=== PATIENT | female | born 1970 | race Caucasian/White ===

== ENCOUNTER 2016-11-16 10:01 | Inpatient (IN) | payer OTHER, MEDICARE ==
[~2016-11-16] VITALS: Ht 167.6 cm; Wt 114.8 kg
[~2016-11-16 10:01] MED LIST: ABILIFY10 M1 PO; BUPROPION HCL200 M2 PO; CYANOCOBAL1000 MCG/2 IM; CYMBALTA60 M1 PO; HYDROXYZINE PAM50 MG PO; LATUDA120 M1 PO; LATUDA40 M1 PO; METHYLPHENIDATE54 M2 PO; OLANZAPINE10 M1 PO; PROPRANOLOL HCL20 M1 PO; TRAZODONE HCL50 M1 PO; VITAMIN D1000 UNIT PO
--- NOTE | 2016-11-16 10:29 | ED PSY CRISIS COLLATERAL NOTE ---
See Addendum Collateral Note Collateral Note Family/Inform/Carlos Contacts: Pt's outreach clinician Suzi Jules called and left a voice message to inform that she sent pt to the ED due to SI with a plan to hang herself in the basement with her dogs leash. Per Suzi Pt feels unsafe and very overwhelmed with her SI and thinks she will act upon it. Crisis attempted to return Suzi's call and left her a voice message as well.
--- NOTE | 2016-11-16 10:31 | ED PSYCHIATRIC COMPLAINT ---
History of Present Illness General Chief Complaint: Psychiatric Related Complaint Stated Complaint: DEPRESSION, +SI Source: patient, old records Exam Limitations: no limitations Vital Signs & Intake/Output Vital Signs & Intake/Output Vital Signs Date Time Temp Pulse Resp B/P Pulse O2 O2 Flow FiO2 Ox Delivery Rate 11/16 1143 Room Air 11/16 1014 97.4 76 20 109/76 95 Room Air Allergies Coded Allergies: cephalexin (RASH 11/16/16) meloxicam (THROAT SWELLING 11/16/16) morphine (GI 11/16/16) Reconcile Medications Aripiprazole (Abilify) 10 MG TABLET 1 TAB PO QPM SLEEP (Reported) Bupropion HCl (Bupropion HCl Sr) 200 MG TABLET.ER 1 TAB PO BID DEPRESSION ( Reported) Cholecalciferol (Vitamin D3) (Vitamin D) 1,000 UNIT TABLET 1 TAB PO DAILY SUPPLEMENT (Reported) Cyanocobalamin (Vitamin B-12) (Cyanocobalamin Injection) 1,000 MCG/1 ML VIAL 1 ML IM Q30D SUPPLEMENT (Reported) Divalproex Sodium (Depakote) 500 MG TABLET.DR 2 TAB PO QPM MENTAL HEALTH ( Reported) Duloxetine HCl (Cymbalta) 60 MG CAPSULE.DR 1 CAP PO DAILY DEPRESSION ( Reported) Fluoxetine HCl 20 MG CAPSULE 1 CAP PO DAILY MENTAL HEALTH (Reported) Lurasidone HCl (Latuda) 120 MG TABLET 1 TAB PO QPM MENTAL HEALTH (Reported) Lurasidone HCl (Latuda) 40 MG TABLET 1 TAB PO QPM DEPRESSION (Reported) Methylphenidate HCl (Methylphenidate ER) 54 MG TAB.ER.24 1 TAB PO QAM DEPRESSION (Reported) Olanzapine 10 MG TABLET 1 TAB PO QPM MENTAL HEALTH (Reported) Propranolol HCl 20 MG TABLET 1 TAB PO BID UNKNOWN (Reported) Trazodone HCl 50 MG TABLET 0.5 TAB PO QPM PRN SLEEP (Reported) Triage Note: TRIAGE: PT TO ER "I'VE BEEN REALLY DEPRESSED AND SUICIDAL SO I DECIDED TO COME IN AND GET HELP". REPORTS PLAN IS TO HANG HERSELF IN HER BASEMENT. HX OF SUICIDE ATTEMPT X 4 VIA OVERDOSE, LAST TIME WAS "OVER 20 YEARS AGO". DENIES ETOH OR SUBSTANCE USE/ABUSE. [facility] K[facility] PRESENT WITH PATIENT AT TRIAGE. Triage Nurses Notes Reviewed? yes HPI: Patient presents with increasing depression with suicidal thoughts with plans to hang herself. Patient states he only reason she has not done in it is because her 6 years ago and she does not want to leave her children without parents. Patient denies any homicidal ideations. Patient states that she has been taking her medications as prescribed. Patient states that she has no will to live. Patient states that she has no appetite because she does not want to eat. Patient denies any nausea or vomiting. Patient's last admission was 6 months ago. Past History Travel History Traveled to [place] past 21 day No Medical History Any Pertinent Medical History? see below for history Neurological: NONE EENT: NONE Cardiovascular: NONE Respiratory: obstructive sleep apnea, HAS CPAP-NONCOMPLIANT Gastrointestinal: NONE Hepatic: NONE Renal: chronic kidney disease Musculoskeletal: NONE Psychiatric: depression, SUICIDE ATTEMPT Endocrine: NONE Blood Disorders: anemia Cancer(s): NONE VP STRATEGIC PLANNING/Reproductive: NONE History of MRSA: No History of VRE: No History of CDIFF: No Surgical History Surgical History: HYSTERECTOMY Psychosocial History Who do you live with Patient/Self Services at Home None What is your primary language Macedonian Tobacco Use: Never used ETOH Use: denies use Illicit Drug Use: denies illicit drug use Family History Family History, If Any: Relation not specified for: *No pertinent family history Hx Contributory? No Review of Systems Review of Systems Constitutional: Reports: no symptoms. EENTM: Reports: no symptoms. Respiratory: Reports: no symptoms. Cardiovascular: Reports: no symptoms. GI: Reports: no symptoms. Genitourinary: Reports: no symptoms. Musculoskeletal: Reports: no symptoms. Skin: Reports: no symptoms. Neurological/Psychological: Reports: see HPI, depressed. Hematologic/Endocrine: Reports: no symptoms. Immunologic/Allergic: Reports: no symptoms. All Other Systems: Reviewed and Negative Physical Exam Physical Exam General Appearance: well developed/nourished, mild distress Head: atraumatic Eyes: Bilateral: PERRL, EOMI. Ears, Nose, Throat: normal pharynx, normal ENT inspection, hearing grossly normal Neck: normal inspection, supple Respiratory: normal breath sounds Cardiovascular: regular rate/rhythm Gastrointestinal: soft, non-tender Extremities: normal range of motion Neurological/Psychiatric: no motor/sensory deficits, alert, calm, flat, oriented x 3 Appearance/Memory/Insight: appropriate appearance, appropriate insight Behavoir/Eye Contact/Speech: avoids eye contact, cooperative, normal speech Thoughts/Hallucinations: normal thought pattern, no apparent hallucination Skin: intact, normal color, warm/dry SAD PERSONS Done? CRISIS CONSULT OBTAINED Progress Differential Diagnosis: drug intoxication, drug overdose, drug withdrawal, electrolyte abnormality Plan of Care: Orders Procedure Date/time Status Regular Diet 11/16 L Active Admit to inpatient psych 11/16 1314 Active Continuous Observation Monitor 11/16 1029 Active URINE DRUGS OF ABUSE 11/16 1029 Complete URINALYSIS 11/16 1029 Complete HUMAN BETA HCG SCREEN 11/16 1029 Complete ETHANOL 11/16 1029 Complete DEPAKOTE LEVEL 11/16 1029 Complete COMPREHENSIVE METABOLIC PANEL 11/16 1029 Complete CBC WITHOUT DIFFERENTIAL 11/16 1029 Complete ED CRISIS PSYCH CONSULT 11/16 1029 Active Laboratory Tests 11/16/16 1124: Anion Gap 8, Estimated GFR 48 L, BUN/Creatinine Ratio 19.2, Glucose 87, Calcium 9.5, Total Bilirubin 0.5, AST 21, ALT 34, Alkaline Phosphatase 81, Total Protein 6.7, Albumin 3.8, Globulin 2.9, Albumin/Globulin Ratio 1.3, Total Beta HCG NEGATIVE, CBC w Diff NO MAN DIFF REQ, RBC 4.04 L, MCV 88.8, MCH 30.8, RDW 13.4, MPV 8.2, Gran % 67.2, Lymphocytes % 26.7, Monocytes % 5.7, Eosinophils % 0, Basophils % 0.4, Absolute Granulocytes 2.9, Absolute Lymphocytes 1.2, Absolute Monocytes 0.2, Absolute Eosinophils 0, Absolute Basophils 0, PUBS MCHC 34.7, Valproic Acid 49.0 L, Serum Alcohol < 10.0 11/16/16 1113: Urine Opiates Screen < 100.00, Methadone Screen 40, Barbiturate Screen < 60, Ur Phencyclidine Scrn < 6.00, Amphetamines Screen 830, U Benzodiazepines Scrn < 85, Urine Cocaine Screen < 50, Urine Cannabis Screen < 5.00, Urinalysis LIGHT H, Urine Color YEL, Urine Clarity HAZY H, Urine pH 6.0, Ur Specific [place] >= 1.030, Urine Protein TRACE H, Urine Ketones NEG, Urine Nitrite NEG, Urine Bilirubin NEG, Urine Urobilinogen 0.2, Ur Leukocyte Esterase MOD H, Ur Microscopic SEDIMENT EXAMINED, Urine RBC RARE, Urine WBC 10-15 H, Ur Epithelial Cells PACKD H, Urine Bacteria MANY H, Urine Mucus RARE, Urine Hemoglobin NEG, Urine Glucose NEG Departure Departure Disposition: STILL A PATIENT Condition: Stable Clinical Impression Primary Impression: Suicidal ideations Secondary Impressions: Major depression Referrals: ALEX AUSTIN MD (PCP/Family) Departure Forms: Customer Survey General Discharge Information Psych Admission Note Psychiatric Admission: I have seen and evaluated KARYN TEJADA. I have also reviewed all the pertinent lab results and diagnostic results. KARYN TEJADA will be admitted to our inpatient Psychiatric unit for treatment and care.
[2016-11-16] MEDS ORDERED: FLUOXETINE HCL20 M2 PO (11:19)
[2016-11-16] MEDS ORDERED: DEPAKOTE500 M1 PO (11:20)
[2016-11-16 11:39] LABS: ABSOLUTE BASOPHIL COUNT 0 /CUMM (0.0-0.2); ABSOLUTE EOSINOPHIL COUNT 0 /CUMM (0.0-0.7); ABSOLUTE GRANULOCYTE CT 2.9 /CUMM (1.4-6.5); ABSOLUTE LYMPH COUNT 1.2 /CUMM (1.2-3.4); ABSOLUTE MONOCYTE COUNT 0.2 /CUMM (0.10-0.60); BASOPHIL % 0.4 % (0.0-2.0); EOSINOPHIL % 0 % (0-5); GRANULOCYTE % 67.2 % (42.2-75.2); HEMATOCRIT 35.9 % (37-47); MEAN CORPUSCULAR HGB 30.8 PG (27.0-31.0); MEAN CORPUSCULAR HGB CONC 34.7 G/DL (33.0-37.0); MEAN CORPUSCULAR VOLUME 88.8 FL (81.0-99.0); MEAN PLATELET VOLUME 8.2 FL (7.4-10.4); PLATELET COUNT 193 /CUMM (130-400); RBC DISTRIBUTION WIDTH 13.4 % (11.5-14.5); RED BLOOD CELL CT 4.04 /CUMM (4.20-5.40); WHITE BLOOD CELL COUNT 4.4 /CUMM (4.8-10.8)
--- NOTE | 2016-11-16 13:14 | ED PSYCH CRISIS CONSULTATION ---
Crisis Consult Basic Assessment Date of Consult: 11/16/16 Responsible Person/Accompanied By: by herself/ [facility] referred her Insurance Authorization: Insurance #1: Insurance name: MEDICARE A Phone number: Policy number: [id number] Group number: Authorization number: ED Provider: Patient's ED Provider: MARISSA BRADY,GEGE Gaytan Primary Care Physician: Patient's PCP: ALEX AUSTIN MD PCP's Current Psychiatrist: Maribeth DAVILA [facility] Chief Complaint: Psychiatric Related Complaint Patient's Quote: "Im very depressed" Present Illness: Pt is a 46 year old female, arriving to ER after reporting suicidal thoughts to her therapist at [facility]. Pt reports she sleeps all day, is depressed, she reports she manages to make dinner for her kids, but otherwise sleeps all day. She states "I do not like the life Im living", pt reports for the past 3 days she began to plan to hang herself with a dogleash in her basement. Pt has a nephew who is staying with her children age 11 and 17. Her nephew is 29 years old, ther childrens father has . She attends her appointments at [facility] but can not identify other supports, aside from her nephew son to her twin sister. She indicates "I want o do more with my kids, i want to feel better". She is on zyprexa, Depakote, Prozac and Wellbutrin, she states she feels like her medications make her unmotivated and tored, and recently her diage of Prozac was decreased. She had a previous attempt years ago, but was a admitted to [facility] last March. She denies drug/etoh use she is a voluntary admission. Patient's Address: [address] [place] [address] Other Phone Number: Who Do You Live With? Family Family/Informants Interviewed: Suzi Cuello and her sister Ct both contacted. Suzi recommedning admission, and I contacted her sister to confirm someone is home with kids Allergies - Coded Allergies: cephalexin (RASH 11/16/16) meloxicam (THROAT SWELLING 11/16/16) morphine (GI 11/16/16) Current Medications - Scheduled Medications Aripiprazole (Abilify) 10 MG TABLET 1 TAB PO QPM SLEEP (Reported) Entered as Reported by KARYN PHILIPPE on 03/13/14 0716 Bupropion HCl (Bupropion HCl Sr) 200 MG TABLET.ER 1 TAB PO BID DEPRESSION ( Reported) Entered as Reported by KARYN PHILIPPE on 03/13/14 0717 Cholecalciferol (Vitamin D3) (Vitamin D) 1,000 UNIT TABLET 1 TAB PO DAILY SUPPLEMENT (Reported) Entered as Reported by ASIF BOYLE on 04/15/16 1355 Cyanocobalamin (Vitamin B-12) (Cyanocobalamin Injection) 1,000 MCG/1 ML VIAL 1 ML IM Q30D SUPPLEMENT #3 (Reported) Entered as Reported by ASIF BOYLE on 04/15/16 1357 Divalproex Sodium (Depakote) 500 MG TABLET.DR 2 TAB PO QPM MENTAL HEALTH #60 (Reported) Entered as Reported by ASIF BOYLE on 11/16/16 1120 Duloxetine HCl (Cymbalta) 60 MG CAPSULE.DR 1 CAP PO DAILY DEPRESSION ( Reported) Entered as Reported by KARYN PHILIPPE on 03/13/14 0717 Fluoxetine HCl 20 MG CAPSULE 1 CAP PO DAILY MENTAL HEALTH #30 (Reported) Entered as Reported by ASIF BOYLE on 11/16/16 1119 Lurasidone HCl (Latuda) 120 MG TABLET 1 TAB PO QPM MENTAL HEALTH #30 ( Reported) Entered as Reported by ASIF BOYLE on 04/15/16 1355 Lurasidone HCl (Latuda) 40 MG TABLET 1 TAB PO QPM DEPRESSION #30 (Reported) Entered as Reported by ASIF BOYLE on 04/15/16 1356 Methylphenidate HCl (Methylphenidate ER) 54 MG TAB.ER.24 1 TAB PO QAM DEPRESSION (Reported) Entered as Reported by KARYN PHILIPPE on 03/13/14 0718 Olanzapine 10 MG TABLET 1 TAB PO QPM MENTAL HEALTH #30 (Reported) Entered as Reported by ASIF BOYLE on 04/15/16 1356 Propranolol HCl 20 MG TABLET 1 TAB PO BID UNKNOWN #60 (Reported) Entered as Reported by ASIF BOYLE on 04/15/16 1355 Scheduled PRN Medications Trazodone HCl 50 MG TABLET 0.5 TAB PO QPM PRN SLEEP (Reported) Entered as Reported by KARYN PHILIPPE on 03/13/14 0716 Laboratory Results: Laboratory Tests 11/16/16 1124: Anion Gap 8, Estimated GFR 48 L, BUN/Creatinine Ratio 19.2, Glucose 87, Calcium 9.5, Total Bilirubin 0.5, AST 21, ALT 34, Alkaline Phosphatase 81, Total Protein 6.7, Albumin 3.8, Globulin 2.9, Albumin/Globulin Ratio 1.3, Total Beta HCG NEGATIVE, CBC w Diff NO MAN DIFF REQ, RBC 4.04 L, MCV 88.8, MCH 30.8, RDW 13.4, MPV 8.2, Gran % 67.2, Lymphocytes % 26.7, Monocytes % 5.7, Eosinophils % 0, Basophils % 0.4, Absolute Granulocytes 2.9, Absolute Lymphocytes 1.2, Absolute Monocytes 0.2, Absolute Eosinophils 0, Absolute Basophils 0, PUBS MCHC 34.7, Valproic Acid 49.0 L, Serum Alcohol < 10.0 11/16/16 1113: Urine Opiates Screen < 100.00, Methadone Screen 40, Barbiturate Screen < 60, Ur Phencyclidine Scrn < 6.00, Amphetamines Screen 830, U Benzodiazepines Scrn < 85, Urine Cocaine Screen < 50, Urine Cannabis Screen < 5.00, Urinalysis LIGHT H, Urine Color YEL, Urine Clarity HAZY H, Urine pH 6.0, Ur Specific [place] >= 1.030, Urine Protein TRACE H, Urine Ketones NEG, Urine Nitrite NEG, Urine Bilirubin NEG, Urine Urobilinogen 0.2, Ur Leukocyte Esterase MOD H, Ur Microscopic SEDIMENT EXAMINED, Urine RBC RARE, Urine WBC 10-15 H, Ur Epithelial Cells PACKD H, Urine Bacteria MANY H, Urine Mucus RARE, Urine Hemoglobin NEG, Urine Glucose NEG Past History Past Medical History Neurological: NONE EENT: NONE Cardiovascular: NONE Respiratory: obstructive sleep apnea, HAS CPAP-NONCOMPLIANT Gastrointestinal: NONE Hepatic: NONE Renal: chronic kidney disease Musculoskeletal: NONE Psychiatric: depression, SUICIDE ATTEMPT Endocrine: NONE Blood Disorders: anemia Cancer(s): NONE DEVELOPMENT ANALYST/Reproductive: NONE Past Surgical History Surgical History: HYSTERECTOMY Psychosocial History Strengths/Capabilities: The patient has good insight into her need for treatment and is motivated to attend. Physical Limitations (Interventions): None noted Psychiatric Treatment History Psych Treatment Psychiatric Treatment Yes Inpatient Treatment Yes Outpatient Treatment Yes Location of Treatment [facility] and Care Reason for Treatment Depression Dates of Treatment 2015 and currently Response to Treatment pt is compliant Diagnosis by History: Depression Substance Use/Abuse History Drug Use/Abuse Substances Used/Abused No Substance Abuse Treatment Substance Abuse Treatment Past Substance Abuse [place] No Current Mental Status Mental Status Orientation: Person, Place, Situation Affect: Anxious, Flat, Hopeless, Sad Speech: Soft Neuro-vegetative: Concentration Poor, Energy Decreased, Helpless, Loss of Interest, Sleep Disturbance Appearance Appearance- Dress/Hygiene: groomed, in hospital attire Behaviors Thought Process: Irrational Thought Content: Somatic Memory: WNL Insight: Poor SI/HI Risk Assessment Past Suicidal Ideation/Attempts Yes Current Suicidal Ideation/Att Yes Past Homicidal Ideation/Att: No Current Homicidal Ideation/Attempts No Degree of Intent: Plan Danger To: Self Gravely Disabled: Poor Impulse Control Risk Factors: history of suicide atmpts, isolate/no social support, lack of outcome concern, limited support Lethality Ratin PTSD Checklist PTSD Done? patient declined ED Management Sitter: Yes Restraints: No DSM5/PS Stressors/Medical Prob Diagnosis' (DSM 5, Stressors, Medical): MDD recurrent, severe F 33.2 Current GAF: 23 Departure Disposition Psych Medical Clearance Date: 11/16/16 Medically Cleared at: 1350 Time Started: 1350 Time Ended: 1450 Psychiatrist Consulted: Kavtiha Valentin MD Date Disposition Established: 11/16/16 Time Disposition Established: 1350 Plan for Disposition - Modality: Inpatient Psychiatry Facility: [facility] Follow-up Appt Date: 11/16/16 Follow-Up Appt Time: 1350 Rationale for Disposition: Pt expressing si and has a plan, admit to [facility] Type of IP Admission: Voluntary Referrals ALEX AUSTIN MD (PCP/Family)
[2016-11-16 15:53] VITALS: BP 122/78
--- NOTE | 2016-11-16 17:08 | History & Physical ---
General Information and HPI History of Present Illness: This young female came in because of increased depression and was sent by her nuclear pharmacist because of suicidal thoughts. The patient admits that she has been more depressed for last month or so because of her brother's recently. She denies any specific physical problems recently and claims that she was taking her medication from psychiatry as directed. She denies any specific medical problems in the past and claims she had some kidney problems due to lithium in the past which improved after she stopped lithium. She denies any other surgeries or major ongoing medical problems. She denies drinking any alcohol and denies any drug abuse. She is and claims her and she has 2 children who are 1117 and in good health. She has 4 living siblings and one brother who and had alcohol and drug addiction. She claims her 3 other brothers also have the same type of problem but her sister does not have any drug addiction and is not under any psychiatric treatment. She claims her mother is in the 80s and alive while her father from a esophageal cancer in the past. She is not employed and is on psychiatric disability this time. Allergies/Medications Allergies: Coded Allergies: cephalexin (RASH 11/16/16) meloxicam (THROAT SWELLING 11/16/16) morphine (GI 11/16/16) Home Med list Aripiprazole (Abilify) 10 MG TABLET 1 TAB PO QPM SLEEP (Reported) Bupropion HCl (Bupropion HCl Sr) 200 MG TABLET.ER 1 TAB PO BID DEPRESSION ( Reported) Cholecalciferol (Vitamin D3) (Vitamin D) 1,000 UNIT TABLET 1 TAB PO DAILY SUPPLEMENT (Reported) Cyanocobalamin (Vitamin B-12) (Cyanocobalamin Injection) 1,000 MCG/1 ML VIAL 1 ML IM Q30D SUPPLEMENT (Reported) Divalproex Sodium (Depakote) 500 MG TABLET.DR 2 TAB PO QPM MENTAL HEALTH ( Reported) Duloxetine HCl (Cymbalta) 60 MG CAPSULE.DR 1 CAP PO DAILY DEPRESSION ( Reported) Fluoxetine HCl 20 MG CAPSULE 1 CAP PO DAILY MENTAL HEALTH (Reported) Lurasidone HCl (Latuda) 120 MG TABLET 1 TAB PO QPM MENTAL HEALTH (Reported) Lurasidone HCl (Latuda) 40 MG TABLET 1 TAB PO QPM DEPRESSION (Reported) Methylphenidate HCl (Methylphenidate ER) 54 MG TAB.ER.24 1 TAB PO QAM DEPRESSION (Reported) Olanzapine 10 MG TABLET 1 TAB PO QPM MENTAL HEALTH (Reported) Propranolol HCl 20 MG TABLET 1 TAB PO BID UNKNOWN (Reported) Trazodone HCl 50 MG TABLET 0.5 TAB PO QPM PRN SLEEP (Reported) Past History Travel History Traveled to [place] past 21 day No Medical History Neurological: NONE EENT: NONE Cardiovascular: NONE Respiratory: obstructive sleep apnea, HAS CPAP-NONCOMPLIANT Gastrointestinal: NONE Hepatic: NONE Renal: chronic kidney disease Musculoskeletal: NONE Psychiatric: depression, SUICIDE ATTEMPT Endocrine: NONE Blood Disorders: anemia Cancer(s): NONE PRINT SUPPORT SPECIALIST/Reproductive: miscarriage, yeast infections History of MRSA: No History of VRE: No History of CDIFF: No Surgical History Surgical History: HYSTERECTOMY Past Family/Social History Family History Relations & Conditions if any Relation not specified for: *No pertinent family history Psychosocial History Where do you live? Home Who Do You Live With? child Services at Home: None Primary Language: Luxembourger ETOH Use: denies use Illicit Drug Use: denies illicit drug use Functional Ability ADLs Independent: dressing, eating, toileting, bathing. Ambulation: independent IADLs Independent: housework, finances, food prep, telephone. Review of Systems Review of Systems Constitutional: Denies: no symptoms, see HPI. EENTM: Denies: no symptoms. Cardiovascular: Denies: no symptoms. Respiratory: Denies: no symptoms. GI: Denies: no symptoms. Genitourinary: Denies: no symptoms. Musculoskeletal: Denies: no symptoms. Skin: Denies: no symptoms. Neurological/Psychological: Reports: see HPI, depressed, emotional problems. Exam & Diagnostic Data Last 24 Hrs of Vital Signs/I&O Vital Signs Date Time Temp Pulse Resp B/P Pulse O2 O2 Flow FiO2 Ox Delivery Rate 11/16 1553 97.4 70 122/78 11/16 1409 97.1 75 16 116/53 94 Room Air 11/16 1143 Room Air 11/16 1014 97.4 76 20 109/76 95 Room Air Intake & Output 11/16 1600 11/16 0800 11/16 0000 Intake Total Output Total Balance Patient 253 lb Weight Physical Exam General Appearance Alert, Oriented X3, Cooperative, No Acute Distress Skin No Rashes, No Breakdown, No Significant Lesion HEENT Atraumatic, PERRLA, EOMI, Mucous Membr. moist/pink Neck Supple, No JVD, No thryomegaly, +2 Carotid Pulse wo Bruit Lymphatic Cervical nl Cardiovascular Regular Rate, Normal S1, Normal S2, No Murmurs, Gallops, Rubs Lungs Clear to Auscultation, Normal Air Movement Abdomen Normal Bowel Sounds, Soft, No Tenderness, No Hepatospenomegaly, No Masses Neurological Exam Findings: Normal Gait, Normal Speech, Strength at 5/5 X4 Ext, Cranial Nerves 3-12 NL, Reflexes 2+ Cranial Nerves II through XII: Within normal limits and intact Extremities No Clubbing, No Cyanosis, No Edema, No Tenderness/Swelling Assessment/Plan Assessment: This young female is admitted for increased depression due to the recent of her brother. From medical standpoint she is fairly stable without any acute medical problems. Her physical exam is stable and her lab work shows slight leukopenia but with differential count is normal and the platelets as well as red cells are all normal. Her electrolytes are normal and the renal functions show a creatinine of 1.2 and the liver functions are also normal and the urine toxicology screen is negative for any drugs of abuse. He she does not require any specific medical workup or treatment at this time. As Ranked By This Provider Problem List: 1. Major depression 2. Suicidal ideation 3. LEXA (obstructive sleep apnea) Miscellaneous Miscellaneous Documentation Attending Case Discussed With: GERARDO HUFFMAN MD Primary Care Physician: CARMELLA GODWIN Patient sees these Specialists none Level of Patient Care: SISI Pelayo Attending MD Review Statement Attending Statement Attending MD Statement: examined this patient, reviewed EMR data (avail), discussed with nursing Attending Assessment/Plan: This young female was admitted for increased depression and suicidal ideation. She is stable from medical standpoint and does not require any specific medical workup or treatment at this time. She has a history of sleep apnea but is not using any CPAP and therefore there is no need to continue at this time.
[2016-11-16 19:37] VITALS: BP 121/75
[2016-11-17 07:42] VITALS: BP 119/75
[2016-11-17 12:36] VITALS: BP 118/63
--- NOTE | 2016-11-17 13:00 | CPS MD/APRN INITIAL ASSE PSYCH ---
Psychiatric Admission [employer]'s Note Reviewed: Yes Patient Seen and Examined: Yes Identifying Information: Pt is a 46 year old female. Chief Complaint: "I'm very depressed" Reaction to Hospitalization: Cooperative and pleasant. History of Present Illness Onset of Illness: Chronic. Patient had been doing well from March 2016 when she was discharged from Inpatient Psychiatry until approximately July 2016. Patient's brother was sick with cancer, in August, which precipitated another exacerbation of debilitating depression. Circumstances Leading to Admission: Arriving to ER after reporting suicidal thoughts to her therapist at [facility]. Problem(s) Justifying Need for Admission: Suicidal ideation, major depression. Past Psychiatric History Past Diagnosis(es)- if any: MDD recurrent, severe F 33.2 Bipolar d/o mre depressed. Past Precipitating Factors- if any: of her brother this past August. Patient's 4 years ago. - Include inpatient and outpatient treatment Treatment History: [facility] March 2016, March 2015, February 2014, August 2013, October 2012, August 2012, March 2010, February 2010. [facility]. She states she is on zyprexa, Depakote, Prozac and Wellbutrin, she states she feels like her medications make her unmotivated and tired, and recently her dose of Prozac was decreased. History of Suicide Attempts or Gestures One attempt by pill overdose 20 years ago. Substance Abuse History: Denies Allergies: Coded Allergies: cephalexin (RASH 11/16/16) meloxicam (THROAT SWELLING 11/16/16) morphine (GI 11/16/16) Home Med List: Wellbutrin SR 200 mg BID Vitamin D3 Vitamin B12 Olanzapine 10 mg daily Propranolol 20 mg BID - Include any medical condition(s) that may - impact the patient's recovery/remission Past History Medical History Neurological: NONE EENT: NONE Cardiovascular: NONE Respiratory: obstructive sleep apnea, HAS CPAP-NONCOMPLIANT Gastrointestinal: NONE Hepatic: NONE Renal: chronic kidney disease Musculoskeletal: NONE Psychiatric: depression, SUICIDE ATTEMPT Endocrine: NONE Blood Disorders: anemia Cancer(s): NONE 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 Substance Use: She has 5 brothers and 3 sisters. One brother from drug abuse, and 2 other brothers are substance abusers. Suicides: Denies Social History Living Situation: The patient lives with her 17-year-old daughter and her 11-year-old son. Her of cancer 4 years ago. DCF is no longer involved. Significant Relationships (family/friends): The patient lives with her 17-year-old daughter and her 11-year-old son. Her of cancer 4 years ago. DCF is no longer involved. Education: Associates Degree in general studies. Vocation/Occupation: She is currently unemployed, on disability. Legal: Denies Healthly Behaviors Screening Tobacco Screening Tobacco Use from ED Docu: Never used - If tobacco counseling indicated - the following topics are required. - #1 Recognizing dangerous situations. - #2 Coping Skills. - #3 Basic information about quitting. Status of Tobacco Cessation Counseling: N/A B/C NO TOB USE Cessation Med Status: No Tobacco Use last 30d Alcohol Screening - ETOH screen POS if BAL >=80 or Audit-C>= M4/F3 Audit-C Score from Diag Assess: 0 Blood Alcohol Level: Laboratory Tests 11/16 1124 Toxicology Serum Alcohol (<10 MG/DL) < 10.0 Alcohol Use Screening Results: Neg per Audit C &/or BAL - If ETOH counseling indicated - the following topics are required. - #1 Express concern about the patient's - drinking at unhealthy levels, include informing - of national norms for moderate drinking: - men <= 14 drinks/week, max 4 drinks/occasion - women <= 7 drinks/week, max 3 drinks/occasion - #2 Providing feedback, including linking alcohol to - negative physical effects (liver injury, hypertension) - negative emotional effects (relationship problems and - depression) - negative occupational consequences (reduced work - performance) - #3 Advising the patient to abstain from alcohol or - to drink below national norms for moderate drinking - (as listed above). Status of ETOH Use Counseling: N/A B/C NO ETOH Use Metabolic Screening - Screen if on a Neuroleptic Medication - Metabolic screening should include: - Blood Pressure, BMI, Glucose or Hgb A1c, & a - Lipid profile from within the past 365 days. Metabolic Screening (x) Not Applicable, patient not on a neuroleptic. OR ([x]) Patient on a neuroleptic(s) . Enter below results for Glucose or Hemoglobin A1C, and lipid panel if obtained during the last 365 days. BMI: 40.800 Blood Pressure: 118/63 Laboratory Results (If applicable): Lab Cholesterol 186 MG/DL 04/01/16 1040 Cholesterol/HDL Ratio 4 % 04/01/16 1040 Glucose 87 mg/dL 11/16/16 1124 HDL Cholesterol 51 mg/dL 04/01/16 1040 Hemoglobin A1c 5.4 % 04/17/16 0519 LDL Cholesterol, Calc 120 mg/dL 04/01/16 1040 Triglycerides 75 mg/dL 04/01/16 1040 Exam and Plan Mental Status Examination Ambulation Status: Ambulates independently with steady gait. Appearance: Disheveled but clean. Attitude towards examiner: Pleasant and cooperative, sad affect Psychomotor activity: Normal limits Behavior: Pleasant and cooperative Quality of speech: Speech is well articulated, goal-directed, average in rate, volume and tone. Affect: Congruent Mood: Sad Suicidal Ideation: Denies suicidal ideation at this time. States "I always wish that I were , however I'm not getting kill myself." Homicidal Ideation: Denies. Hallucinations: Denies Paranoid/Delusional Material: Denies Difficulties with thought organization: Thoughts appear organized. Insight: Fair Judgment: Poor Orientation: Alert and oriented to person, place, time and situation. Cognition: Within normal limits Memory Function: Within normal limits Estimate of intellectual functioning: Average Assets/Strengths Patient Identified Assets/Strengths: "I have a good sense of humor when I'm not depressed." Impression/Plan Impression and Plan: This is a 46-year-old woman, with history of chronic major depression, and mood instability. 4 years ago she suffered the of her , and 2 months ago the of her brother from cancer. States she spends most of her time at home sleeping, and finds it difficult to take care of herself and her 2 daughters. Patient states that her outpatient provider at [facility], Ame Aguilera, has performed genetic testing which showed that Lexapro would be a good antidepressant for her. She is being titrated off Prozac to discontinuation with the intention of starting Lexapro by her outpatient provider. Discontinue Prozac. Start Lexapro 10 mg daily. Depakote level in the morning. Collateral from outpatient provider needed. - Include all active medical diagnosis that require tx DSM 5 Diagnosis(es): Bipolar d/o, mre depressed. - Initial Tx Plan for Active Psych & Medical Conditions Treatment Plan: PLAN: The patient will be monitored on the unit for safety, depression, mood stability and suicidal ideation. Additional information is needed from collaterals, including her mother. Anticipate once clinically stable, that the patient will be discharged to home and family and be referred to IOP at [facility]. - Factors that would help patient function - in a less restrictive setting. Factors: Resolution of suicidal ideation.
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
[2016-11-17 16:03] VITALS: BP 124/81
--- NOTE | 2016-11-17 16:57 | SOCIAL WORKER PROG NOTE PSYCH ---
Social Work Progress Note Progress Note Pt continues to endorse si, she opted to stay in bed most of thed ay, she was laying in bed while we spoke. Pt reports being sad, scared and anxious. Pt states her meds are changing and she will try to go more groups tomorrow. Pt will return to [facility] upon discharge.
[2016-11-17 19:47] VITALS: BP 129/67
[2016-11-18 07:54] VITALS: BP 107/76
[2016-11-18 12:15] VITALS: BP 111/69
--- NOTE | 2016-11-18 14:31 | CP SOUTH PROGRESS NOTE PSYCH ---
Psych (Inpt) Progress Note Progress Note Progress Note: I discussed this patient's progress to date, current mental status, treatment process in the context of the treatment plan, and discharge planning with staff/ team in the daily morning inpatient team meeting. I also met with the patient myself in individual session. SUBJECTIVE: "I get some relief from anxiety with propranolol. I may be feeling a little bit better than yesterday." OBJECTIVE: Current Medications Sig/Olivia Start time Last Medication Dose Route Stop Time Status Admin Cholecalciferol 1,000 IU DAILY 11/17 1000 AC 11/18 PO 0832 Divalproex Sodium 1,250 MG AT BEDTIME 11/18 2199 UNVr PO Divalproex Sodium 1,000 MG AT BEDTIME 11/16 220 DC 11/17 PO 2138 Escitalopram Oxalate 10 MG 0800 11/18 0800 AC 11/18 PO 0832 Melatonin 5 MG AT BEDTIME PRN 11/16 1930 AC PO Olanzapine 10 MG QPM 11/16 2199 AC 11/17 PO 2138 Olanzapine 5 MG Q4 HRS NEEDED PRN 11/16 191 AC PO Propranolol HCl 20 MG 0800,11/18 UNVr PO Propranolol HCl 20 MG 00,1999 PRN 11/17 1331 r 11/18 PO 11/18 195 0832 Laboratory Tests 11/18 0604 Chemistry Hemoglobin A1c (4.2 - 5.8 %) 5.2 TSH (0.270 - 4.200 uIU/mL) 3.320 Toxicology Valproic Acid (50 - 120 ug/mL) 56.3 Vital Signs Date Time Temp Pulse Resp B/P Pulse O2 O2 Flow FiO2 Ox Delivery Rate 11/18 1215 60 111/69 11/18 0832 73 107/76 11/18 0754 96.6 73 107/76 11/179 75 129/67 11/17 1947 97.4 75 129/67 11/17 1603 76 124/81 ASSESSMENT: Patient has mostly been spending her day lying in bed. Was up for one group today, taking meals. Reports some improvement in depression and anxiety today. States that according to genetic testing, [facility] was planning on switching her not only to Lexapro but also to Geodon. Phone call placed and message left for patient's [facility] provider, JUAN LUIS GRANADO APRN. Patient states she is tolerating the switch from Prozac to Lexapro without complaint. Verbalizes understanding of today's valproic acid level, agrees to increase in Depakote level. Depression:6/10; Anxiety:4/10 (with 10 the worst.) Denies suicidal ideation, homicidal ideation, auditory hallucinations, visual hallucinations, paranoid ideation. Patient states and also believes that she will not kill herself. Reports that her appetite is good. Patient has been encouraged to attend all community activities, not to isolate in bed. Speech is well articulated, goal-directed, average in rate, volume and tone. The patient understands the risks/benefits/side effects of the medication and is agreeable to continue taking them. PLAN: Slow progress. Increase Depakote to 1250 mg at bedtime. Anticipate family meeting with . Continue with current management as patient is improving. Continue to provide support and encouragement.
[2016-11-18 16:00] VITALS: BP 127/69
--- NOTE | 2016-11-18 17:28 | SOCIAL WORKER PROG NOTE PSYCH ---
Social Work Progress Note Progress Note Anjelica has attended some groups today. Presents with a flat, depressed affect. States she feels very depressed. Reported depression has been worsening over the past month, though she has dealt with depression on and off for 30 years. She reported not wanting to get out of bed or do anything. Struggling to help her kids (11 and 17) prepare meals other than dinner. Her kids are currently with her Mom in [place]. Views her Mom as a big support. Signed a release for Mom and is willing to have her in for a meeting. Receives treatment at [facility]. Sees Ame Reilly APRN, Suzi Jules, and Breanna Petty. Last time she felt she was doing well was about 4 years ago when her was alive and she was working 2 jobs. Since her 's passing she has been declining. She recently lost her Brother to cancer in August. She feels this was a trigger to her increased depression.
[2016-11-18 19:28] VITALS: BP 125/77
[2016-11-19 11:59] VITALS: BP 101/67
--- NOTE | 2016-11-19 13:57 | SOCIAL WORKER PROG NOTE PSYCH ---
Social Work Progress Note Progress Note El Holland APRN and I met with Anjelica together. Talked about the Ketamine trial that [facility] conducting. This was a recommendation from her semiconductor dies loader at [facility] Ame Reilly APRN. Anjelica was under the impression that she has done a study in the past, but reports that it was for a week and not longer. She is interested in finding out more information. Told her that I can print out some information for her, but I believe that they take participants who complete a phone screening and have been accepted. She reports that she is feeling a little better today, with less suicidal thoughts. She is experiencing some thoughts on the unit with plans, such as taking the kitchen garbage bag out and suffocating herself. She was able to contract for safety on the unit and said she would go to someone. She also stated that she came here "to be safe". She rates her depression at a 7 (10 being worst) and anxiety a 4. Denies any psychosis. Sleeping ok. Anjelica asked for help with an insurance issue. She believes that her [employer] A is ending at the end of the month and she is concerned that she will only have Medicare. I told her that we can try and call together tomorrow. She would like to return to [facility] and do their IOP if possible. Talked about really wanting to be able to go back to work. 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 Talked about taking small steps to look into what would be required for her to get back into it. I told Anjelica that I called her Mom this morning to set up a family meeting, but haven't heard back. Called again in the afternoon and left another message.
--- NOTE | 2016-11-19 15:17 | CP SOUTH PROGRESS NOTE PSYCH ---
Psych (Inpt) Progress Note Progress Note Progress Note: I discussed this patient's progress to date, current mental status, treatment process in the context of the treatment plan, and discharge planning with staff/ team in the daily morning inpatient team meeting. I also met with the patient myself in individual session. A total of 25 minutes was spent with the patient with more than 50% spent in counseling and/or coordination of care. SUBJECTIVE: "I'm not suicidal, but I'm still depressed." OBJECTIVE: Current Medications Sig/Olivia Start time Last Medication Dose Route Stop Time Status Admin Cholecalciferol 1,000 IU DAILY 11/17 1000 AC 11/19 PO 0839 Divalproex Sodium 1,000 MG AT BEDTIME 11/18 2200 AC 11/18 PO 2130 Divalproex Sodium 250 MG AT BEDTIME 11/18 2200 AC 11/18 PO 2130 Escitalopram Oxalate 10 MG 0800 11/20 0800 CAN PO Escitalopram Oxalate 15 MG 0800 11/20 0800 AC PO Escitalopram Oxalate 5 MG ONCE ONE 11/19 1015 DC 11/19 PO 11/19 1016 1124 Escitalopram Oxalate 10 MG 0800 11/18 0800 DC 11/19 PO 0839 Melatonin 5 MG AT BEDTIME PRN 11/16 1930 AC PO Olanzapine 10 MG QPM 11/16 2200 AC 11/18 PO 2131 Olanzapine 5 MG Q4 HRS NEEDED PRN 11/16 1915 AC PO Propranolol HCl 20 MG 0800,11/18 AC 11/19 PO 0840 Propranolol HCl 20 MG 0800,1999 PRN 11/17 1331 DC 11/18 PO 11/18 1959 0832 Vital Signs Date Time Temp Pulse Resp B/P Pulse O2 O2 Flow FiO2 Ox Delivery Rate 11/19 1159 71 101/67 11/19 0840 97.4 78 16 125/77 11/18 2016 125/77 11/18 1928 97.4 78 125/77 11/18 1600 68 127/69 ASSESSMENT: Today I met the patient along with social service liaison Laura Severino LCSW. Patient reports slow improvement. Tolerating Lexapro well, without complaint. States that she is feeling less suicidal ideation, however still thinks of things that she can do in order to kill herself. Patient contracts for safety while here on the unit states "I came here to be safe." Reports that she does feel safe while she is here. I spoke on the phone today with the patient's outpatient provider at [facility] [place], Nurse Practitoner Radha Aguilera, reports that Genomic testing had been done which showed that the patient might do well on Lexapro and Geodon. The patient has proved to be treatment resistant, having been on many different medications for depression over many years. In the past, the Patient did not want to continue with ECT, because of memory loss. Recommended that patient consider ketamine trial at [place], she had not been accepted for a ketamine trial many years ago. Depression:/10; Anxiety:4/10 (with 10 the worst.) Denies homicidal ideation, auditory hallucinations, visual hallucinations, paranoid ideation. Patient reports sleeping well at night. Appetite is good Speech is well articulated, goal-directed, average in rate, volume and tone. Cooperative. Sad, slow affect. 3. Logical. The patient understands the risks/benefits/side effects of the medication and is agreeable to continue taking them. PLAN: Slow progress. Continue with current management as patient is improving. Continue to provide support and encouragement.
[2016-11-19 16:18] VITALS: BP 109/72
[2016-11-19 19:39] VITALS: BP 121/62
[2016-11-20 07:59] VITALS: BP 112/72
--- NOTE | 2016-11-20 12:12 | CP SOUTH PROGRESS NOTE PSYCH ---
Psych (Inpt) Progress Note Progress Note Progress Note: I discussed this patient's progress to date, current mental status, treatment process in the context of the treatment plan, and discharge planning with staff/ team in the daily morning inpatient team meeting. I also met with the patient myself in individual session. A total of 15 minutes was spent with the patient with more than 50% spent in counseling and/or coordination of care. SUBJECTIVE: "I'm upset my room was changed. I'm afraid it's going to be noisy at night." OBJECTIVE: Current Medications Sig/Olivia Start time Last Medication Dose Route Stop Time Status Admin Cholecalciferol 1,000 IU DAILY 11/17 1000 AC 11/20 PO 09 Divalproex Sodium 1,000 MG AT BEDTIME 11/18 2199 AC 11/19 PO 2202 Divalproex Sodium 250 MG AT BEDTIME 11/18 220 AC 11/19 PO 2202 Escitalopram Oxalate 20 MG 11/21 0800 AC PO Escitalopram Oxalate 5 MG ONCE ONE 11/20 1200 AC PO 11/20 1201 Escitalopram Oxalate 15 MG 11/20 0800 DC 11/20 PO 0923 Melatonin 5 MG AT BEDTIME PRN 11/16 1930 AC PO Olanzapine 10 MG QPM 11/16 2199 AC 11/19 PO 2203 Olanzapine 5 MG Q4 HRS NEEDED PRN 11/16 1915 AC PO Propranolol HCl 20 MG 0800,11/18 AC 11/20 PO 0923 Vital Signs Date Time Temp Pulse Resp B/P Pulse O2 O2 Flow FiO2 Ox Delivery Rate 11/20 09 69 112/72 11/20 0759 96.5 69 11272 11/20 2003 70 121/62 11/19 1939 97.6 70 121/62 11/19 1618 65 109/72 11/19 1159 71 101/67 ASSESSMENT: Patient has been out of bed this morning, attending groups. This is an improvement, as prior to this morning she had been spending much of her time here isolating in bed. States that she is tolerating the increased dose of Depakote and Lexapro well. Reports that she's feeling somewhat better. Agrees to increase dose of Lexapro to 20 mg daily for depression and anxiety. We discussed the possibility of restarting lithium, which had been discontinued in the past. Patient states that she discontinued lithium because she was going into "renal failure." States she had been seen by nephrology in [place] at the time, and was told by dish up person to stop taking lithium. I offered her another nephrology consult, if she would consider adding lithium, and she has declined. We also revisited ECT treatments with the patient. States that she had "15 rounds" of ECT in the past. States it was not helpful and she suffered memory loss. Patient is declining to consider additional ECT. Depression:/10; Anxiety:/ (with 10 the worst.) Reports depression and anxiety somewhat improved. Denies suicidal ideation, homicidal ideation, auditory hallucinations, visual hallucinations, paranoid ideation. Patient states and also believes that she will not kill herself. Sleeping well at night, napping at times during the day. Reports diminished appetite. Patient is aware that weight gain is a possible side effect of Depakote. Speech is well articulated, goal-directed, average in rate, volume and tone. The patient understands the risks/benefits/side effects of the medication and is agreeable to continue taking them. PLAN: Increase Lexapro to 20 mg daily. Depakote level tomorrow morning. Continue with current management as patient is improving. Continue to provide support and encouragement.
[2016-11-20 12:19] VITALS: BP 102/60
--- NOTE | 2016-11-20 14:38 | SOCIAL WORKER PROG NOTE PSYCH ---
Social Work Progress Note Progress Note Called Anjelica's Mom again this morning and left a detailed message about having a family meeting for today at 1 or 2pm. Mom returned the call and stated that she could not make a meeting today, but didn't offer when she could come in. Anjelica later informed me that she spoke with her Mom and she could be available for Wednesday at 1pm. Anjelica and I called [facility] to discuss her health insurance. She was able to get [employer] again for the period of 11/28/16- 11/27/17. Anjelica was relieved about getting the insurance issue resolved. She is looking forward to going to [facility] for aftercare. She can go to orientation on 11/25 at 3pm if she is discharged by then. Anjeliac is making slow improvement. She was less isolated today and reports diminshed thoughts of SI.
[2016-11-20 15:47] VITALS: BP 110/69
[2016-11-20 19:50] VITALS: BP 116/97
[2016-11-21 07:56] VITALS: BP 102/70
[2016-11-21 12:25] VITALS: BP 110/62
[2016-11-21 16:05] VITALS: BP 107/69
[2016-11-21 19:35] VITALS: BP 131/65
--- NOTE | 2016-11-21 21:27 | CP SOUTH PROGRESS NOTE PSYCH ---
Psych (Inpt) Progress Note Progress Note Include the following elements, when applicable: Involvement in the active treatment of the patient with behavioral observations of the patient and the patient's response to the treatment. Review of the ongoing treatment process in the context of the treatment plan. Indication of how multi-disciplinary staff members are carrying out the treatment plan. Plans for future interventions and recommendations for revision of the treatment plan. Liaison with other physicians/providers. Progress Note: PSYCHIATRIST (COVERING) NOTE, 11/21/2016: I am covering this patient today for El Holland APRN. I discussed patient's progress to date and current mental status with staff and met with her myself in individual session. Patient actually looked a little brighter with better color in her face and smiled a little more than the last time I had met with her during a previous admission to [facility]. Patient denied any problematic side effects on higher dose of Lexapro (20mg/day) or Depakote ER (1, 250mg/day); serum valproic acid level this morning appeared to be optimal at 89.9mcg/ml; however, medication is being administered at HS, not 8pm, so 10-12 hour level may be somewhat lower; I will repeat level in AM 11/23/2016. Patient reported good sleep at night but that she sleeps "too much...day and night;" if this continues it might make sense to lower HS dose of Zyprexa a little, say 2.5mg to start. Patient denies suicidality/suicidal ideation.
[2016-11-22 08:13] VITALS: BP 115/66
[2016-11-22 15:53] VITALS: BP 125/57
[2016-11-22 19:57] VITALS: BP 131/70
--- NOTE | 2016-11-22 21:28 | CP SOUTH PROGRESS NOTE PSYCH ---
Psych (Inpt) Progress Note Progress Note Include the following elements, when applicable: Involvement in the active treatment of the patient with behavioral observations of the patient and the patient's response to the treatment. Review of the ongoing treatment process in the context of the treatment plan. Indication of how multi-disciplinary staff members are carrying out the treatment plan. Plans for future interventions and recommendations for revision of the treatment plan. Liaison with other physicians/providers. Progress Note: PSYCHIATRIST (COVERING) NOTE, 11/22/2016: I discussed this patient's slow progress to date and current mental status with nursing staff and met with her again myself in individual session today. She had slept well again last night but noted, "Doctor, that is not my problem; I sleep day and night!" Patient does appear slightly more spontaneous and broader in affect, a little more positive or at least less negativistic, denies current suicidality. She agreed to doubling current dose of Wellbutrin SR from 100mg to 200mg/day, starting tomorrow morning, 11/23/2016. I will not decrease nightly dose of Zyprexa (10mg HS) with the other medication changes made during this admission but would recommend consideration of a dose taper following interval of outpatient stabilization on adequate combined anti-depressant and mood-stabilizer regimen.
[2016-11-23 08:06] VITALS: BP 112/68
[2016-11-23 12:07] VITALS: BP 115/66
--- NOTE | 2016-11-23 13:50 | SOCIAL WORKER PROG NOTE PSYCH ---
Social Work Progress Note Progress Note Anjelica was in bed alot this morning. Her Mom came in for a family meeting at 1pm today. Anjelica reports that Wednesday was a good day for her, but yesterday she felt down with some SI. Denies SI today. She couldn't understand why she was taken off of Wellbutrin and then started on it again, but then said that she thinks it's because she needs a little "get up and go". She doesn't think she is going to do the Ketamine study. She has questions about it. I encouraged her to write down a list of questions so she can ask. Mom is concerned about her sleeping all the time and lack of structure. We talked about involvement at [facility]. Mom can't commit to bringing her to her meetings there. We talked about her getting [employer]. Anjelica needs a PTR form filled out so that she get rides due to being on a bus line. I told Anjelica I can help her with that. Anjelica's appt. for IOP intake is Saturday 11/25 at 2pm and then she will see Ame Reilly APRN on at 1pm. Mom seems to think she can help Anjelica with these initial appts. Mom talked about how Anjelica needs help with lots of things, but she doesn't ask anyone for help. Encouraged her to share those things with her case sealer at [facility]. Anjelica does receive VNS services 2x's a day from [facility]. She talked about not liking the service 2 times daily, due to the inconsistencies of the times they come. 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 Talked about her goal to work. She says she has been trying to work with [facility] on employment but they haven't helped her. Encouraged her to also look into working with [employer] and to show people she is ready by getting to appts. and getting up at the same time and getting ready for the day. Discussed discharge for tomorrow. Mom will pick her up at 1pm. Called [facility] to request a PTR form.
--- NOTE | 2016-11-23 15:30 | CP SOUTH PROGRESS NOTE PSYCH ---
Psych (Inpt) Progress Note Progress Note Include the following elements, when applicable: Involvement in the active treatment of the patient with behavioral observations of the patient and the patient's response to the treatment. Review of the ongoing treatment process in the context of the treatment plan. Indication of how multi-disciplinary staff members are carrying out the treatment plan. Plans for future interventions and recommendations for revision of the treatment plan. Liaison with other physicians/providers. Progress Note: PSYCHIATRIST NOTE, 11/23/2016: I discussed this patient's slow progress to date, current mental status, treatment and discharge planning with staff team today in the daily morning ITTM and also met with her again myself in individual session. Patient tolerating reintroduction of Wellbutrin and willing to double dose to 200mg/day prior to discharge. Serum valproic acid level this more stable and optimal at 80mcg/ml and Depakote ER well tolerated at current dose of 1,250mg/day. Patient reports some improvement in mood and denies suicidality/homicidality, feels ready for discharge tomorrow. Hopefully, she will have transportation to attend the [facility]. She reports some improvement in energy level and thinks she will be able to handle home responsibilities with two daughters; she told me that her older 17- year-old had been through some difficulties but was actually better now than she had been when a younger adolescent. Patient is looking forward to getting back home and being with her girls again.
[2016-11-23 15:58] VITALS: BP 112/74
[2016-11-23 19:42] VITALS: BP 130/68
[2016-11-24 07:43] VITALS: BP 93/57
[2016-11-24] MEDS ORDERED: MELATONIN5 M7 PO (10:24)
[2016-11-24] MEDS ORDERED: LEXAPRO10 M1 PO (10:31)
--- NOTE | 2016-11-24 11:00 | SOCIAL WORKER PROG NOTE PSYCH ---
Social Work Progress Note Progress Note Faxed the PTR form to [facility] for Anjelica, so she can hopefully start getting transportation next week for IOP. Spoke with [facility] VNS to inform them of discharge and to resume services for today. Walter Wang RN will see her this afternoon. Meds can be called into [facility] in [place]. Met with Anjelica who was up and in group this morning. Looks bright and ready to go. We reviewed her discharge follow up appts. I informed her to check with [facility] about her rides in a couple days. Talked about structuring her day and not going back to bed after the kids leave for school and after the nurse arrives. Encouraged her to pursue goals of work or volunteering. Anjelica will be in [facility]'s symptom mangement IOP M,W,F 1-4pm. Returned to group after we talked. Mom is planning to pick her up for 1pm.
[2016-11-24] MEDS ORDERED: PROPRANOLOL HCL20 M1 PO (11:12)
[2016-11-24] MEDS ORDERED: DEPAKOTE ER500 M1 PO (11:13)
[2016-11-24] MEDS ORDERED: WELLBUTRIN SR100 M2 PO (11:14)
[2016-11-24] MEDS ORDERED: DEPAKOTE ER250 M1 PO (11:14)
[2016-11-24] MEDS ORDERED: OLANZAPINE10 M1 PO (11:14)
[2016-11-24] MEDS ORDERED: VITAMIN D31000 UNI2 PO (11:28)
[2016-11-24 12:12] VITALS: BP 108/63
--- NOTE | 2016-11-24 15:06 | DISCHARGE SUMMARY REPORT-PSYCH ---
Visit Information Visit Dates/Diagnosis' Admission Date: 11/16/16 Discharge Date: 11/24/16 Reason for Admission: "I'm very depressed." Psy Discharge Primary Diag: Unspecified Bipolar, MRE Depressed/suicidal Psy Discharge Secondary Diag: stage III renal failure LEXA (uses C-PAP machine) Hospital Course Significant Lab Findings: glucose = 87; BUN = 23, creatinine = 1.2, GFR = 48; WBC = 4.4, RBC = 4.04, hematocrit = 35.9; LAKISHA = less than 10.0; urine for drugs of abuse--negative (for further details of all normal range laboratory data from this admission, see the electronic medical record) Course Complications: none Consultations: patient was seen for an admission medical H&P and followed medically throughout this admission by Damon Marcano M.D. Allergies: Coded Allergies: cephalexin (RASH 11/16/16) meloxicam (THROAT SWELLING 11/16/16) morphine (GI 11/16/16) Hospital Course/TX Response: (see also all daily MSuzanne., [employer] and [employer] progress notes in the electronic medical record) I began treating this patient on the morning of 11/21/2016. I noted that patient actually looked to me to be a little brighter, with better color in her face, and smiled a little more than the last time I had met with her during one of her previous admissions to [facility], though patient did not see herself as doing very well at the time. I continued to view her as becoming slightly more spontaneous and broader and brighter in affect, a little more positive or at least less negativistic in outlook on the future. She agreed to upward titration in dose of Wellbutrin SR to 200mg/day and tolerated this well. Serum valproic acid level on 11/21/2016 seemed optimal at 89.9mcg/ml. Patient's energy level improved and she felt she could handle the responsibilities of her household and two minor daughters. On date of discharge she attended group, looked bright and ready for discharge, without any evidence of suicidal or homicidal ideation, plans, intent or impulses and was well aware of her safety plan should she ever in future come to believe herself at risk to harm herself or others. Discharge HBIPS - Tobacco Use Treatment Offered Post DC Medications Offered: NA-No Tob Use >30 days Post DC Tobacco Treatment Plan: NA-No Tobacco use >30days - EtOH/Drug Use D/O Treatment Offered Post DC Medications Offered: NA-No EtOH/Drug Use D/O Post DC EtOH/SubAbuse TX Plan: NA-No EtOH/Drug Use D/O Metabolic Screening - Screen if on a Neuroleptic Medication - Metabolic screening should include: - Blood Pressure, BMI, Glucose or Hgb A1c, & a - Lipid profile from within the past 365 days. Metabolic Screening () Not Applicable, patient not on a neuroleptic. OR ([X]) Patient on a neuroleptic(s) . Enter below results for Glucose or Hemoglobin A1C, and lipid panel if obtained during the last 365 days. BMI: 40.800 Blood Pressure: 108/63 Laboratory Results (If applicable): glucose = 87 (on 11/16/2016) glycos hgb A1c = 5.4% (04/17/2016) cholesterol = 186 triglycerides = 75 HDL = 51 LDL = 120 (all drawn on 04/01/2016) Discharge Instructions General Discharge Information Discharge Medications: Discharge Medication (dose, route, frequency, indications): I called into [facility] in [place], [place]., on date of discharge: Wellbutrin SR, 100mg: i tab 2x/day, at 8am/noon (200mg daily); #28, no refill (anti-depressant augmentation) Lexapro, 20mg: i tab daily in AM (20mg/day); #14 with no refill (anti- depressant) Depakote ER, 500mg: ii tabs evenings; #28 with no refill (mood stabilization) Depakote ER, 250mg: i tab evenings; #14 with no refill (mood stabilization) (patient is currently taking 1,250mg of Depakote ER daily) Zyprexa, 10mg: i tab nightly at HS (10mg/night); #14 with no refill (to clarify thinking) patient is also has a sufficient supply at home to take as: propranolol, 20mg 2x/day (40mg daily) cholecalciferol, 1,000 units daily patient may also continue to take: melatonin, 5mg HS OTC (for sleep induction) Multiple Neuroleptics: ([X]) Not Applicable OR Document below three failed attempts at monotherapy, or a plan to taper to monotherapy, or augmentation of Clozapine. () Patient's Diet: regular Patient's Activity: without restrictions DC Disposition: to home with daughters Recommendations: I would recommend that following an interval of outpatient stabiization attempt be made to slowly taper down on current dose of Zyprexa. Referred To: Patient was referred her longtime ongoing outpatient treatment with [facility] in [facility], where she plans to attend their Symptom Management IOP, M/W/, 1-4pm; she has an intake appointment for that program scheduled on 2016 at 2pm. She will also meet with her prescriber, Maribeth Reilly APRN, next on 11/26/2016 at 2pm. The visiting nurse from [facility], Gerald Wang R.N., will resume twice daily home visits on the afternoon of discharge, 11/24/2016. Copies To: JUA NLUIS GRANADO APRN
--- NOTE | 2016-11-24 15:06 | CP SOUTH PROGRESS NOTE PSYCH ---
Psych (Inpt) Progress Note Progress Note Include the following elements, when applicable: Involvement in the active treatment of the patient with behavioral observations of the patient and the patient's response to the treatment. Review of the ongoing treatment process in the context of the treatment plan. Indication of how multi-disciplinary staff members are carrying out the treatment plan. Plans for future interventions and recommendations for revision of the treatment plan. Liaison with other physicians/providers. Progress Note: PSYCHIATRIST NOTE (DISCHARGE), 11/24/2016: I discussed this patient's progress to date, current mental status, treatment and discharge plans with staff team today in the daily morning ITTM and also met with her again myself in individual session prior to discharging her to resume outpatient treatment with [facility] in [facility], where she has an intake appointment tomorrow, 11/25/2016 at 2pm for their Symptom Management IOP which meets 3x/week; she will also meet with her prescriber, Maribeth Reilly APRN, next the following day, 11/26/2016 at 2pm. Visiting nurse from [facility] (Walter Morales R.N.) will resume twice daily visits this afternoon; hopefully visiting nurse appointments and IOP times will not conflict. Patient denied any problems/side effects on higher dose Wellbutrin and is positive about current medication regimen, knows that it is up to her to use any increase in energy and mood to expand her activities at home and in the community. She is currently euthymic, shows no evidence of suicidal or homicidal ideation, plans, intent or impulses. I called into [facility], [facility], on date of discharge, 11/24/2016: Wellbutrin SR, 100mg: i 2x/day, at 8am and noon (200mg daily); #28, no refill ( anti-depressant) Lexapro, 20mg: i daily in AM (20mg/day); #14 with no refill (anti-depressant) Depakote ER, 500mg: ii evenings; #28 with no refill (mood stabilization) Depakote ER, 250mg every evening; #14 with no refill (mood stabilization) (patient currently on a total of 1,250mg of Depakote every evening) Zyprexa, 10mg: i nightly at HS (10mg/night); #14 with no refill (clarify thoughts) patient is also taking and has sufficient supplies of: propranolol, 20mg 2x/day (40mg/daily) cholecalciferol, 1,000 units daily patient also may continue to take: melatonin, 5mg HS OTC (for sleep)
== END 2016-11-24 13:00 | DRG 885 ==
LOC: ENRESERVTM → ENRESERVDT → ERH 10:01 → CP SOUTH 14:18 → ERHI 14:18 → CP SOUTH 14:53
PROVIDERS: Emergency Medicine; ADMIT Psychiatry & Neurology Psychiatry
DX: F31.9 Bipolar disorder, unspecified (principal); N18.3 Chronic kidney disease, stage 3 (moderate); G47.33 Obstructive sleep apnea (adult) (pediatric)
CPT/HCPCS: 36415; 80307; 81001; 93005; 93010; G0480; Q2036